=== PATIENT | female | born 2005 | race Caucasian/White ===

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

== ENCOUNTER 2024-01-17 20:45 | Emergency (ER) | payer SELFPAY ==
[2024-01-17 20:46] VITALS: BP 133/78; PULSE 97; RESP 16; TEMP 36.9; O2SAT 100; BMI 25.4
--- NOTE | 2024-01-17 21:06 | EKG12_ITS ---
Test Reason : DYSRHYTHMIA Blood Pressure : / mmHG Vent. Rate : 074 BPM Atrial Rate : 074 BPM P-R Int : 144 ms QRS Dur : 076 ms QT Int : 388 ms P-R-T Axes : 054 063 042 degrees QTc Int : 430 ms Normal sinus rhythm Septal infarct , age undetermined Abnormal ECG Confirmed by TYLER GALINDO, DIONI ([id number]), purchasing expeditor LEAH WOODARD ([id number]) on 01/18/2024 9:24:53 AM Referred By: Confirmed By:DIONI SCOTT MD
--- NOTE | 2024-01-17 21:07 | CT_ITS ---
EXAM: CT ABDOMEN AND PELVIS WITH INTRAVENOUS CONTRAST CLINICAL INDICATION: abdominal pain TECHNIQUE: Helically acquired images were obtained of the abdomen and pelvis with intravenous contrast. This CT exam was performed using one or more of the following dose reduction techniques: automated exposure control, adjustment of the mA and/or kV according to patient size, and/or use of iterative reconstruction technique. CONTRAST: 100 cc of Isovue-370 IV. RADIATION DOSE: CTDIvol = 8.51 mGy, DLP = 347.40 mGy-cm COMPARISON: No relevant prior studies available. FINDINGS: LOWER THORAX: Unremarkable. Lung bases are clear. No cardiomegaly. No significant pericardial effusion. ABDOMEN: LIVER: Unremarkable. Homogeneous. No focal mass. GALLBLADDER AND BILE DUCTS: Unremarkable. No calcified gallstones. No gallbladder distention or wall edema. No intra- or extrahepatic biliary ductal dilation. PANCREAS: Unremarkable. No focal cystic or solid mass. SPLEEN: Unremarkable. Normal size without focal cystic or solid mass. ADRENALS: Unremarkable. No nodules. KIDNEYS AND URETERS: Unremarkable. Normal renal size and position. No hydronephrosis. STOMACH AND BOWEL: Unremarkable. No stomach or bowel distention. No focal inflammatory change. PELVIS: APPENDIX: Normal appendix. BLADDER: Unremarkable. REPRODUCTIVE: Unremarkable as visualized. No mass. ABDOMEN and PELVIS: INTRAPERITONEAL SPACE: Unremarkable. No ascites or other fluid collection. No free air. BONES/JOINTS: Unremarkable. No suspicious lytic or blastic abnormality. SOFT TISSUES: Unremarkable. No discrete abdominal or pelvic wall hernia. VASCULATURE: Unremarkable. Abdominal aorta is non-dilated. LYMPH NODES: Unremarkable. No enlarged lymph nodes. CT/Abdomen/Pelvis W IV Cont ONLY IMPRESSION: No acute abdominal pelvic abnormality. Electronically Signed: Aj Barry MD at 23:12 EDT ,
[2024-01-17] MEDS: 0.9% Normal Saline (1000mL) 1,000 ML 1000 ML IV (21:19)
[2024-01-17] MEDS: Ondansetron 4 MG/2 ML Vial IV (21:19)
[2024-01-17] MEDS: Ketorolac 15 MG/ML Vial IV (21:19)
--- NOTE | 2024-01-17 21:23 | EX.ED.DYSGE1 ---
HPI <ARDEN Castellon - Last Filed: 01/17/24 22:21> History of Present Illness Chief Complaint: General Illness Narrative Narrative: Patient is a 18-year-old female that currently does not see a PCP, who presents to the emergency department for multiple complaints. Patient over the last 2 years believes that she has something wrong with her urinary tract such as with her kidneys or getting constant infections. Patient also has history of gonorrhea however has been with 1 male partner for 1 year, patient states she did experiment with a female 3 to 4 months ago. Patient states that she has intermittent vaginal discharge, she went to urgent care today had a pelvic as well as swabs completed for bacterial vaginosis, GC and chlamydia. Patient is here today because the back pain and abdominal pain is worse and she is here for reevaluation. Patient's last sexual encounter was 1 week ago. Patient's menstrual cycle was early in the in the month of December. Patient is here with her mother [facility] <ARDEN Castellon - Last Filed: 01/17/24 22:21> [facility] Medical History Anxiety Asthma Depression GERD (gastroesophageal reflux disease) HSP (Henoch Schonlein purpura) TBI (traumatic brain injury) Home Medications NK 01/17/24 [History Last Taken Unknown] Allergy/AdvReac Type Severity Reaction Status Date / Time No Known Allergies Allergy Verified 01/17/24 20:46 Surgical History Hx of tonsillectomy Social History Smoking Status: Current every day smoker tobacco type: e-cigarettes substance use type: does not use ROS <ARDEN Castellon - Last Filed: 01/17/24 22:21> ROS ED ROS Narrative Constitutional: Negative for fever, chills, weight loss, weakness Eyes: Negative for vision loss, vision change, double vision ENT: Negative for any sore throat, ear pain, congestion Cardiovascular: Negative for any tightness, palpitations. Positive for chest tightness Respiratory: Negative for any cough, sputum production, hemoptysis, dyspnea, dyspnea on exertion, orthopnea Gastrointestinal: Negative for any vomiting, diarrhea, constipation, blood in stool, blood in vomit. Positive for abdominal pain, nausea : Negative for any urinary frequency, retention, blood in urine. Positive for dysuria, intermittent vaginal drainage Muscle skeletal: Negative for any neck pain, back pain Neurological: Negative for any headache, syncope, dizziness Skin: Negative for any rashes, itching, abrasions, lacerations Psychiatric: Negative for any depression, anxiety, stress, suicidal ideation, homicidal ideation Hematologic: Negative for any excessive bruising, easy bleeding EXAM <ARDEN Castellon - Last Filed: 01/17/24 22:21> Physical Exam Narrative Exam Narrative: Vital signs reviewed. HEET: Head normocephalic atraumatic, TMs clear bilaterally. Posterior pharynx is clear, moist mucous membranes. Nares clear bilaterally. Neck: Supple with no lymphadenopathy or tenderness. No signs of meningismus. Cardiac: Regular rate and rhythm no murmurs gallops or rubs, equal peripheral pulses bilaterally. Respiratory: Lungs clear to auscultation bilaterally. No chest tenderness. Abdomen: Soft, tenderness to upper and lower abdomen, pretty generalized. Difficult to localize any pain. Nondistended. No abdominal bruit or pulsatile masses. No hepatosplenomegaly Extremities: No peripheral edema, no signs of gross trauma or deformity. Active full range of motion of all extremities. Neuro: Cranial nerves II through XII intact, no focal neurological deficits. Skin: Clean dry and intact with no rash, purpura, petechiae, vesicles or pustules. Backs/flank: No CVA tenderness, no midline spinal tenderness, no deformity. Psych: Normal mood and affect. No SI, HI or acute psychosis. Pelvic: Patient already had a pelvic exam today, swabs were sent, she currently does not want another pelvic exam Const Vital Signs: 01/17/24 20:46 01/17/24 20:56 01/17/24 22:44 Temperature 98.5 F Temperature Source Temporal Pulse Rate 97 81 Respiratory Rate 16 16 Respiratory Effort Normal Non-Labored Respiratory Pattern Normal Blood Pressure 133/78 H 106/76 Blood Pressure Mean 96 86 Pulse Ox 100 100 Oxygen Delivery Method Room Air Positive well nourished and well developed General Appearance ED: well developed <Dr. Jagdeep Byrnes MD - Last Filed: 01/17/24 23:26> Physical Exam Const Vital Signs: 01/17/24 20:46 01/17/24 20:56 01/17/24 22:44 Temperature 98.5 F Temperature Source Temporal Pulse Rate 97 81 Respiratory Rate 16 16 Respiratory Effort Normal Non-Labored Respiratory Pattern Normal Blood Pressure 133/78 H 106/76 Blood Pressure Mean 96 86 Pulse Ox 100 100 Oxygen Delivery Method Room Air [facility] <Petros KerrHARSH-C - Last Filed: 01/17/24 22:21> [facility] Lab Data Labs: Laboratory Results - last 24 hr 01/17/24 21:22 WBC 9.2 RBC 4.44 Hgb 12.7 Hct 38.2 MCV 86.0 MCH 28.6 MCHC 33.2 RDW Std Deviation 40.4 RDW Coeff of Yudelka 13.1 Plt Count 337 MPV 9.5 Immature Gran % (Auto) 0.300 Neut % (Auto) 70.5 H Lymph % (Auto) 22.5 [place] % (Auto) 6.4 Eos % (Auto) 0.1 Baso % (Auto) 0.2 Absolute Neuts (auto) 6.5 Absolute Lymphs (auto) 2.07 Nucleated RBC % 0 Sodium 139 Potassium 3.4 L Chloride 107 Carbon Dioxide 25.0 Anion Gap 7 BUN 6 L Creatinine 0.70 Estim Creat Clear Calc 112.99 Est GFR (MDRD) Af Amer 137 Est GFR (MDRD) Non-Af 113 BUN/Creatinine Ratio 8.5 L Glucose 90 Calcium 9.2 Total Bilirubin 0.80 AST 20 ALT 15 Alkaline Phosphatase 39 L Total Protein 7.9 Albumin 4.1 Globulin 3.8 Albumin/Globulin Ratio 1.1 Lipase 24 Urine Color Yellow Urine Clarity Clear Urine pH 7.0 Ur Specific [place] 1.010 Urine Protein 15 H Urine Glucose (UA) Normal Urine Ketones Negative Urine Occult Blood Negative Urine Nitrite Negative Urine Bilirubin Negative Urine Urobilinogen Normal Ur Leukocyte Esterase Negative Urine RBC 0 SEEN Urine WBC 0 SEEN Ur Squamous Epith Cells 0-5 SEEN Urine Bacteria 1+ Urine Mucus 0 SEEN Urine Test Negative Radiography Diagnostic Testing: Clinical Impression(s) from Imaging Studies Abdomen/Pelvis CT 01/17/24 21:07 IMPRESSION: No acute abdominal pelvic abnormality. Electronically Signed: Aj Barry MD at 23:12 EDT , EKG Normal sinus rhythm: Attestation: I personally reviewed and interpreted this EKG as follows: Interpretation: Sinus Rhythm Comments: Normal sinus rhythm, rate of 74 bpm, OR interval 144 ms, QRS duration 76 ms, no acute ST elevation, no acute infarct noted. Treatment and Re-Evaluation :: Patient appears to be in no obvious respiratory distress, vital signs are stable. Patient presents to the emergency department with complaints of abdominal pain, intermittent vaginal pain, vaginal discharge, dysuria, chest tightness. Differential diagnosis includes however is not limited to: Sexually-transmitted disease, , appendicitis, anxiety. Patient will receive a full abdominal workup including urinalysis, urine , CT scan of the abdomen pelvis. All radiologic examinations were read, reviewed by the emergency department attending. From these reads, a plan of care will be put in place. IV fluids, IV Zofran and Toradol will be given. Patient will be reevaluated. Patient's laboratory values showed a normal CBC, patient's chemistries were unremarkable. Urinalysis did show 1+ bacteria however no leukocytes, no nitrites, negative . Patient did have improvement of symptoms after IV fluids, Toradol, Zofran. Patient did refuse a pelvic exam secondary to having 1 already today with swabs. Patient will receive a CT scan of the abdomen pelvis. <Dr. Jagdeep Byrnes MD - Last Filed: 01/17/24 23:26> [facility] Narrative Medical decision making narrative: I have personally performed a face to face assessment of the patient and have reviewed the NIALL Note. I performed a substantive portion of the visit including all aspects of the following. My brown findings include: History is 18-year-old female complaining of lower abdominal pelvic pain. Was previously seen in urgent care. A pelvic exam done and cultures which are awaiting results. She does not want another pelvic exam done. States that she has had bilateral flank pain and lower abdominal pain last several days. She has had urinary tract infections before. She has had a history of prior gonorrhea. Does not believe that she is currently . Denies any fever or weight loss. No prior abdominal surgeries. Exam is [well-appearing 18-year-old female. Vital signs stable afebrile. She does not look septic toxic or in any distress. H EENT exam unremarkable. Mytrex members. Neck nontender. Lungs clear. Heart regular rhythm. Abdomen soft, nondistended normal bowel sounds no peritoneal signs. Does not have any significant reproducible tenderness. There is no right upper or right lower quadrant tenderness. No hernia or mass. No distention or obstruction. Moving all 4 extremities. Back nontender. Neurologically she is awake alert no focal motor deficits.] Medical Decision Making [labs are unremarkable. CAT scan showed no acute abnormality. Repeat exam patient doing well at 11:25 PM. Will be discharged home with outpatient follow-up.] Other additions or changes: [None] Lab Data Attestation: I reviewed the patient's lab results. Lab results narrative: CBC normal. White count 9. H&H 12 and 38. Platelets 337. Electrolytes unremarkable other than potassium 3.4. Gap 7. Normal BUN and creatinine. Glucose 90. Liver enzymes normal. Lipase normal at 24. UA negative. Urine test negative. Labs: Laboratory Results - last 24 hr 01/17/24 21:22 WBC 9.2 RBC 4.44 Hgb 12.7 Hct 38.2 MCV 86.0 MCH 28.6 MCHC 33.2 RDW Std Deviation 40.4 RDW Coeff of Yudelka 13.1 Plt Count 337 MPV 9.5 Immature Gran % (Auto) 0.300 Neut % (Auto) 70.5 H Lymph % (Auto) 22.5 [place] % (Auto) 6.4 Eos % (Auto) 0.1 Baso % (Auto) 0.2 Absolute Neuts (auto) 6.5 Absolute Lymphs (auto) 2.07 Nucleated RBC % 0 Sodium 139 Potassium 3.4 L Chloride 107 Carbon Dioxide 25.0 Anion Gap 7 BUN 6 L Creatinine 0.70 Estim Creat Clear Calc 112.99 Est GFR (MDRD) Af Amer 137 Est GFR (MDRD) Non-Af 113 BUN/Creatinine Ratio 8.5 L Glucose 90 Calcium 9.2 Total Bilirubin 0.80 AST 20 ALT 15 Alkaline Phosphatase 39 L Total Protein 7.9 Albumin 4.1 Globulin 3.8 Albumin/Globulin Ratio 1.1 Lipase 24 Urine Color Yellow Urine Clarity Clear Urine pH 7.0 Ur Specific [place] 1.010 Urine Protein 15 H Urine Glucose (UA) Normal Urine Ketones Negative Urine Occult Blood Negative Urine Nitrite Negative Urine Bilirubin Negative Urine Urobilinogen Normal Ur Leukocyte Esterase Negative Urine RBC 0 SEEN Urine WBC 0 SEEN Ur Squamous Epith Cells 0-5 SEEN Urine Bacteria 1+ Urine Mucus 0 SEEN Urine Test Negative Radiography Diagnostic Testing: Clinical Impression(s) from Imaging Studies Abdomen/Pelvis CT 01/17/24 21:07 IMPRESSION: No acute abdominal pelvic abnormality. Electronically Signed: Aj Barry MD at 23:12 EDT , Discharge Plan Triage Chief Complaint: General Illness ED Midlevel Provider: Petros Kerr ED Provider: Jagdeep Byrnes Dx/Rx/DC Orders Clinical Impression: Dysuria, Chest tightness, Abdominal pain Instructions: Abdominal Pain, ED Dysuria, Uncertain Cause (Adult) Prescriptions: No Action NK Primary Care Provider: Care Physician,No Primary Referrals: Jenny Smiley MD [Med Staff - Active Staff] - Care Physician,No Primary [Primary Care Provider] - Activity Restrictions/Additional Instructions: Please follow-up outpatient, I referred you to urology. Disposition Disposition: Home, Self Care
[2024-01-17 21:27] LABS: Mucous, Urine 0 SEEN /hpf (<or=2+); Red Blood Cells-Urine 0 SEEN /hpf (0-5); White Blood Cells 0 SEEN /hpf (0-5)
[2024-01-17 21:29] LABS: Absolute Lymphocyte Count 2.07 X10^3/uL (0.83-4.51); Absolute Neutrophil Count 6.5 X10^3/uL (2.0-7.7); Basophil# 0.02 X10^3/uL; Basophil% 0.2 % (0-1); Eosinophil# 0.01 X10^3/uL; Eosinophils% 0.1 % (0-5); Hematocrit 38.2 % (37-47); Hemoglobin 12.7 g/dL (12.0-15.0); Lymphocyte # 2.07 X10^3/ul (0.83-4.51); Lymphocyte % 22.5 % (19-41); Mean Corp Hgb Conc 33.2 g/dL (32-36); Mean Corpuscular Hgb 28.6 pg (27.0-32.0); Mean Platelet Vol. 9.5 fl (6.2-12.0); Monocyte# 0.59 X10^3/uL; Monocyte% 6.4 % (0-10); NRBC Flagged by Analyzer 0 % (0-5); Neutrophil # 6.48 X10^3/uL (2.7-7.7); Neutrophil % 70.5 % (47-70); Platelet Count 337 K/mm3 (150-450); RBC Distribution Width CV 13.1 % (11.6-14.6); RBC Distribution Width SD 40.4 fl (35.1-43.9); Red Blood Count 4.44 M/mm3 (4.2-5.4); White Blood Count 9.2 K/mm3 (4.4-11.0)
[2024-01-17 21:38] LABS: Color, Urine Yellow (Yellow); Glucose, Dipstick Normal (Normal); Ketone-Dipstick Negative (Negative); Leukocyte Esterase-Dipstick Negative /ul (Negative); Nitrite-Dipstick Negative (Negative); Occult Blood-Urine Negative /ul (Negative); Protein-Dipstick 15 mg/dl (Negative); Urine Bilirubin Dipstick Negative (Negative); Urine Clarity Clear (Clear); Urine Urobilinogen Normal (Normal)
[2024-01-17 21:49] LABS: Bacteria 1+ /hpf (None Seen); Internal QC Validated? YES +Cl - CLEAR BKGD; Pregnancy, Urine Negative Negative; Record Kit Lot#,Urine Preg 718086; Squamous Epithelial Cells - UA 0-5 SEEN /hpf (5-10)
[2024-01-17 21:50] LABS: ALB/GLOB Ratio 1.1 RATIO (0.9-2.4); AST(SGOT) 20 U/L (15-37); Alanine Aminotransfer ALT/SGPT 15 U/L (13-56); Albumin, Serum 4.1 g/dL (3.2-5.0); Alkaline Phosphatase 39 U/L (45-117); Anion Gap 7 (5-15); BUN 6 mg/dL (7-18); BUN/Creat Ratio 8.5 RATIO (10-20); Calcium,Total 9.2 mg/dL (8.5-10.1); Chloride 107 mmol/L (98-107); EST Glomerular Filtration Rate 113 mL/min (>60); Est Glom Filt Rate - Afr Amer 137 mL/min (>60); Estimated Creatinine Clearance 112.99 ml/min; Globulin 3.8 g/dL (2.2-4.2); Glucose 90 mg/dL (74-106); Lipase 24 U/L (13-75); Potassium 3.4 mmol/L (3.5-5.1); Protein, Total 7.9 g/dL (6.4-8.2); Sodium Level 139 mmol/L (136-145)
[2024-01-17 22:44] VITALS: BP 106/76; PULSE 81; RESP 16; O2SAT 100
[2024-01-17 23:30] VITALS: BP 98/67; PULSE 72; RESP 16; TEMP 36.7; O2SAT 99
== END 2024-01-17 23:34 | disposition home or self-care (01) ==
PROVIDERS: Nurse Practitioner; Emergency Provider Emergency Medicine; Visit Provider Emergency Medicine
DX: R30.0 Dysuria (principal); R07.89 Other chest pain; F17.290 Nicotine dependence, other tobacco product, uncomplicated; J45.909 Unspecified asthma, uncomplicated; K21.9 Gastro-esophageal reflux disease without esophagitis; Z87.440 Personal history of urinary (tract) infections; R10.9 Unspecified abdominal pain
CPT/HCPCS: 74177; 80053; 81001; 81025; 83690; 85025; 93005; 96361; 96374; 96375; 99283; J7030; Q9967; A4216; J2405

== ENCOUNTER 2024-01-19 13:12 | Emergency (ER) | payer SELFPAY ==
[2024-01-19 13:13] VITALS: BP 129/87; PULSE 104; RESP 20; TEMP 36.3; O2SAT 99; BMI 25.2
[2024-01-19 13:15] VITALS: BP 129/87; PULSE 102; RESP 20; O2SAT 99
--- NOTE | 2024-01-19 14:27 | EDS_ITS ---
HPI History of Present Illness Chief Complaint: Headache Informant: patient Onset/Context/Timing Onset: Month(s) (1) Context: Gradual Timing: Continuous Quality -Headache: Positive for Similar Prior Headaches, Throbbing and Burning Location: Generalized Worsened by: Activity, lights, sounds Relieved by: Nothing Associated Symptoms/Injury Associated Symptoms: Positive for Fever (Subjective fevers), Nausea, Vomiting, Sore Throat, Tingling, Visual Changes, Blurred Vision and Photophobia; Negative for Sinus Pressure, Numbness, Preceding Aura or Visual Loss Injury - CAUSEY: Negative for Direct Trauma Narrative Narrative: Patient presents with a headache that has been getting progressively worse over the past month. Patient states over the past 2 weeks it has gotten significantly worse. Patient states that she has had similar headaches in the past but not this bad. Patient states her pain has been constant. Patient describes it as burning in her ears and throbbing. Patient states the pain is diffuse across her head. Patient states it is worse with activity, lights, and sounds. Patient states nothing seems to help with the pain. Patient admits to some nausea and vomiting. Patient admits to some tingling in her left upper extremity. Patient patient admits to a sore throat. Patient also admits to some blurry vision and photophobia. Patient states she feels weak all over but denies any focal weakness. Patient admits to some pain in her neck and back as well. [facility] Medical History Anxiety Asthma Depression GERD (gastroesophageal reflux disease) HSP (Henoch Schonlein purpura) TBI (traumatic brain injury) Home Medications imiquimod 5 % topical cream packet 1 applic topical DAILY 01/19/24 [History Last Taken 01/18/24] metronidazole 500 mg tablet 500 mg PO BID 01/19/24 [History Last Taken 01/18/24] miconazole nitrate 200 mg vaginal suppository (Miconazole-3) 200 mg vaginal QHS 01/19/24 [History Last Taken 01/18/24] miconazole nitrate 200 mg/5 gram (4 %) vaginal cream (Monistat 3) 1 appful vaginal QHS 01/19/24 [History Last Taken 01/18/24] Allergy/AdvReac Type Severity Reaction Status Date / Time No Known Allergies Allergy Verified 01/19/24 13:13 Surgical History Hx of tonsillectomy Social History Smoking Status: Current every day smoker tobacco type: e-cigarettes substance use type: does not use ROS ROS ED Constitutional Constitutional ED: Reports chills, fever(s) and subjective Eyes Eyes: Reports blurry vision; Denies diplopia ENT ENT ED: Reports sore throat; Denies rhinorrhea Cardiovascular Cardiovascular: Reports racing heartbeat; Denies chest pain Respiratory/Chest Respiratory/Chest: Denies cough or dyspnea Gastrointestinal Gastrointestinal: Reports nausea and vomiting Genitourinary Genitourinary ED: Reports dysuria; Denies hematuria Musculoskeletal Musculoskeletal: Reports back pain and neck pain Integumentary Denies abscess or rash Neurologic Neurologic: Reports headache(s), paresthesias LUE and weakness Allergic/Immunologic Allergic/Immunologic ED: Denies mouth swelling or urticaria EXAM Physical Exam Const Vital Signs: 01/19/24 13:13 01/19/24 13:15 Temperature 97.4 F L Temperature Source Temporal Pulse Rate 104 H 102 H Respiratory Rate 20 H 20 H Blood Pressure 129/87 H 129/87 H Blood Pressure Mean 101 101 Pulse Ox 99 99 Oxygen Delivery Method Room Air Room Air Positive well nourished and well developed General Appearance ED: well developed and NAD HEENT Reports moist mucous membranes atraumatic Neck supple, no meningeal signs and no JVD Resp normal respiratory effort and clear to auscultation bilaterally Cardio regular rhythm Rate: tachycardic GI non-distended Auscultation: normoactive bowel sounds Palpation: soft Extremity normal to inspection and full ROM Neuro oriented x3, CN's II-XII intact bilaterally and no sensory deficits noted Mark Coma Scale: document GCS findings Spontaneous Obeys Commands Oriented 15 Sensorium / Orientation: awake and alert Speech: speech normal Motor Exam: strength 5/5 throughout Psych mental status grossly normal MDM MDM MDM Narrative Medical decision making narrative: Differential diagnosis includes migraine headache, tension headache, viral illness, urinary tract infection, gastroenteritis, and dehydration. CBC will be obtained to assess for leukocytosis and anemia. Basic metabolic profile will be obtained to assess for electrolyte abnormality and renal function. Urinalysis will be obtained to assess for urinary tract infection. Serum hCG will be obtai javier to assess for . Lab Data Attestation: I reviewed the patient's lab results. Lab results narrative: CBC was reviewed and was within normal limits. Basic metabolic profile was reviewed and was within normal limits. Serum hCG was reviewed and was negative. Urinalysis was reviewed. There is no evidence of urinary tract infection or hematuria. Labs: Laboratory Results - last 24 hr 01/19/24 01/19/24 14:45 Unknown WBC 9.6 RBC 4.60 Hgb 12.8 Hct 39.7 MCV 86.3 MCH 27.8 MCHC 32.2 RDW Std Deviation 41.2 RDW Coeff of Yudelka 13.4 Plt Count 352 MPV 9.6 Immature Gran % (Auto) 0.400 Neut % (Auto) 80.5 H Lymph % (Auto) 14.7 L [place] % (Auto) 4.2 Eos % (Auto) 0.0 Baso % (Auto) 0.2 Absolute Neuts (auto) 7.7 Absolute Lymphs (auto) 1.41 Nucleated RBC % 0 Sodium 140 Potassium 3.8 Chloride 107 Carbon Dioxide 24.0 Anion Gap 9 BUN 11 Creatinine 0.77 Estim Creat Clear Calc 102.22 Est GFR (MDRD) Af Amer 123 Est GFR (MDRD) Non-Af 101 BUN/Creatinine Ratio 14.2 Glucose 77 Calcium 9.8 HCG, Quant < 1 Urine Color Yellow Urine Clarity Sl. Cloudy Urine pH 8.0 Ur Specific [place] 1.015 Urine Protein 15 H Urine Glucose (UA) Normal Urine Ketones 50 H Urine Occult Blood Negative Urine Nitrite Negative Urine Bilirubin Negative Urine Urobilinogen Normal Ur Leukocyte Esterase 25 H Urine RBC 0 SEEN Urine WBC 0-5 SEEN Ur Squamous Epith Cells 10-25 SEEN Amorphous Sediment 1+ Urine Bacteria 1+ Urine Mucus 0 SEEN Radiography Diagnostic Testing: Clinical Impression(s) from Imaging Studies Brain CT 01/19/24 15:04 IMPRESSION: Normal CT brain without intravenous contrast. Electronically Signed: Lex Ortiz MD at 15:46 EDT , CT scan of the brain was obtained. There is no acute intracranial abnormality. This was interpreted by the radiologist and was also independently reviewed by myself. Treatment and Re-Evaluation Narrative: Patient was given IV fluids, Reglan, and Benadryl. Patient is feeling better on reevaluation. Patient states her headache is nearly resolved. Patient states she feels sleepy. Patient was instructed to go home and rest in a dark quiet room. Patient was instructed to follow-up with her primary care physician in 5 to 7 days. Patient and family understood and were agreeable with the plan. All questions were answered. Discharge Plan Triage Chief Complaint: Headache ED Provider: Lauro Edgar Dx/Rx/DC Orders Clinical Impression: Headache with remote history of traumatic head injury, Headache Instructions: ED Headache Unspecified Prescriptions: No Action Monistat 3 200 mg/5 gram (4 %) cream 1 appful vaginal QHS imiquimod 5 % cream in packet 1 applic topical DAILY Patient Comments: MON/WED/FRI ONLY metronidazole 500 mg tablet 500 mg PO BID Miconazole-3 200 mg suppository 200 mg vaginal QHS Patient Comments: X3 DAYS Primary Care Provider: Care Physician,No Primary Referrals: Antonio Maldonado MD [Med Staff - Manager Occupational] - 5-7 Days Care Physician,No Primary [Primary Care Provider] - Disposition Disposition: Home, Self Care
[2024-01-19] MEDS: 0.9% Normal Saline (1000mL) 1,000 ML 999 ML IV (14:56)
[2024-01-19] MEDS: Metoclopramide 10 MG/2 ML Vial IV (14:56)
[2024-01-19] MEDS: DiphenhydrAMINE 50 MG/ML Syringe 25 MG IV (14:56)
[2024-01-19 14:59] LABS: Absolute Lymphocyte Count 1.41 X10^3/uL (0.83-4.51); Absolute Neutrophil Count 7.7 X10^3/uL (2.0-7.7); Basophil# 0.02 X10^3/uL; Basophil% 0.2 % (0-1); Hematocrit 39.7 % (37-47); Hemoglobin 12.8 g/dL (12.0-15.0); Lymphocyte # 1.41 X10^3/ul (0.83-4.51); Lymphocyte % 14.7 % (19-41); Mean Corp Hgb Conc 32.2 g/dL (32-36); Mean Corpuscular Hgb 27.8 pg (27.0-32.0); Mean Corpuscular Volume 86.3 fL (81-99); Mean Platelet Vol. 9.6 fl (6.2-12.0); Monocyte% 4.2 % (0-10); NRBC Flagged by Analyzer 0 % (0-5); Neutrophil # 7.74 X10^3/uL (2.7-7.7); Neutrophil % 80.5 % (47-70); Platelet Count 352 K/mm3 (150-450); RBC Distribution Width CV 13.4 % (11.6-14.6); RBC Distribution Width SD 41.2 fl (35.1-43.9); White Blood Count 9.6 K/mm3 (4.4-11.0)
--- NOTE | 2024-01-19 15:04 | CT_ITS ---
EXAM: CT HEAD WITHOUT INTRAVENOUS CONTRAST CLINICAL INDICATION: Headache -- test pending TECHNIQUE: Multiple axial images were obtained of the head without intravenous contrast. This CT exam was performed using one or more of the following dose reduction techniques: automated exposure control, adjustment of the mA and/or kV according to patient size, and/or use of iterative reconstruction technique. COMPARISON: No relevant prior studies available. FINDINGS: BRAIN AND EXTRA-AXIAL SPACES: Normal. Normal brain attenuation. No intra- or extra-axial hemorrhage. No acute infarct. No intracranial mass or mass effect. There is preservation of the lewis/white matter interface. Posterior fossa structures are unremarkable. Ventricles are appropriate for age. No hydrocephalus. Basal cisterns are patent. BONES/JOINTS: Normal calvarium. SINUSES: No acute sinusitis. MASTOID AIR CELLS: Normal. Clear. CT/Brain/Head without Contrast IMPRESSION: Normal CT brain without intravenous contrast. Electronically Signed: Lex Ortiz MD at 15:46 EDT ,
[2024-01-19 15:06] LABS: Mucous, Urine 0 SEEN /hpf (<or=2+); Red Blood Cells-Urine 0 SEEN /hpf (0-5)
[2024-01-19 15:11] LABS: Color, Urine Yellow (Yellow); Glucose, Dipstick Normal (Normal); Ketone-Dipstick 50 mg/dl (Negative); Leukocyte Esterase-Dipstick 25 /ul (Negative); Nitrite-Dipstick Negative (Negative); Occult Blood-Urine Negative /ul (Negative); Protein-Dipstick 15 mg/dl (Negative); Specific Gravity, Urine 1.015 (1.002-1.030); Urine Bilirubin Dipstick Negative (Negative); Urine Clarity Sl. Cloudy (Clear); Urine Urobilinogen Normal (Normal)
[2024-01-19 15:14] LABS: Anion Gap 9 (5-15); BUN 11 mg/dL (7-18); BUN/Creat Ratio 14.2 RATIO (10-20); Calcium,Total 9.8 mg/dL (8.5-10.1); Chloride 107 mmol/L (98-107); Creatinine, Serum 0.77 mg/dL (0.55-1.02); EST Glomerular Filtration Rate 101 mL/min (>60); Est Glom Filt Rate - Afr Amer 123 mL/min (>60); Estimated Creatinine Clearance 102.22 ml/min; Glucose 77 mg/dL (74-106); Potassium 3.8 mmol/L (3.5-5.1); Sodium Level 140 mmol/L (136-145)
[2024-01-19 15:18] LABS: hCG Titer Quant., Serum < 1 mIU/mL (1-3)
[2024-01-19 15:19] LABS: Amorphous Sediment 1+; Bacteria 1+ /hpf (None Seen); Squamous Epithelial Cells - UA 10-25 SEEN /hpf (5-10); White Blood Cells 0-5 SEEN /hpf (0-5)
[2024-01-19 16:30] VITALS: BP 117/72; PULSE 80; RESP 14; TEMP 36.1; O2SAT 99
== END 2024-01-19 16:37 | disposition home or self-care (01) ==
PROVIDERS: Emergency Provider Emergency Medicine; Visit Provider Emergency Medicine
DX: R51.9 Headache, unspecified (principal); F17.290 Nicotine dependence, other tobacco product, uncomplicated
CPT/HCPCS: 70450; 80048; 81001; 84702; 85025; 96361; 96374; 96375; 99283

== ENCOUNTER → 2025-01-19 | Outpatient (CLI) | payer SELFPAY | END | disposition home or self-care (01) | LOC: LABSPEC 11:41 | PROVIDERS: Referring Provider Nurse Practitioner Family; Visit Provider Nurse Practitioner Family | DX: R10.2 Pelvic and perineal pain (principal); Z12.4 Encounter for screening for malignant neoplasm of cervix | CPT/HCPCS: 87070; 87205; 88175; G0145 ==

== ENCOUNTER 2025-03-07 20:39 | Emergency (ER) | payer MEDICAID, SELFPAY ==
[2025-03-07 20:40] VITALS: BP 119/70; PULSE 96; RESP 16; TEMP 36.9; O2SAT 100; BMI 22.7
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
[2025-03-07 21:17] VITALS: BP 95/57; PULSE 98; RESP 16; TEMP 36.9; O2SAT 100
== END 2025-03-07 21:22 | disposition home or self-care (01) ==
LOC: ED 21:11
PROVIDERS: Emergency Provider Emergency Medicine; Visit Provider Emergency Medicine
DX: R20.2 Paresthesia of skin (principal); M54.9 Dorsalgia, unspecified; R32 Unspecified urinary incontinence; F41.9 Anxiety disorder, unspecified; G89.29 Other chronic pain; F17.290 Nicotine dependence, other tobacco product, uncomplicated; Z87.820 Personal history of traumatic brain injury
CPT/HCPCS: 99282

== ENCOUNTER → 2025-08-24 | Outpatient (CLI) | payer MEDICAID, SELFPAY | END | disposition home or self-care (01) | LOC: LABSPEC 10:26 | PROVIDERS: Visit Provider Advanced Practice Midwife | DX: N89.8 Other specified noninflammatory disorders of vagina (principal) | CPT/HCPCS: 87070; 87205 ==